=== PATIENT | female | born 2000 ===

== ENCOUNTER 2022-08-13 08:28 | Emergency (ER) | payer BC, MEDICAID ==
[2022-08-13] MEDS ORDERED: Ondansetron 4 MG/2 ML SDV IVPUSH ONE (08:38)
[2022-08-13] MEDS ORDERED: Sodium Chloride 0.9% 1,000 ML IV SCH (08:45)
[2022-08-13 08:55] LABS: ESTIMATED GFR 109 mL/min (>60)
[2022-08-13] MEDS ORDERED: Prochlorperazine 10 MG/2 ML SDV IVPUSH ONE (09:20)
[2022-08-13] MEDS ORDERED: Iopamidol 755 Mg/ML 100 ML Bottle IV ONE (09:54)
== END 2022-08-13 10:45 | disposition home or self-care (01) ==
LOC: FB.ED 08:28
DX: K52.9 Noninfective gastroenteritis and colitis, unspecified (principal); E86.0 Dehydration; Z88.0 Allergy status to penicillin
CPT/HCPCS: 36415; 74177; 80053; 85025; 96361; 96374; 96375; 99284; 99284-25; J0780; J2405; J7030; Q9967